=== PATIENT | male | born 1945 | race Caucasian/White ===

== ENCOUNTER 2019-06-15 08:50 | Outpatient (CLI) | payer OTHER ==
[~2019-06-15 08:50] MED LIST: SIMVASTATIN PO; TAMS-11 PO; VICODIN PO
[2019-06-15] MEDS ORDERED: IOHEXOL 100 ML IV ONE (09:13)
== END 2019-06-15 20:27 | disposition home or self-care (01) ==
LOC: SCT 08:50
PROVIDERS: ATTEND Family Medicine
DX: G43.919 Migraine, unspecified, intractable, without status migrainosus (principal)
CPT/HCPCS: 70460; Q9967